=== PATIENT | male | born 1940 | race Caucasian/White ===

== ENCOUNTER 2023-08-27 18:18 | Emergency (ER) | payer OTHER, SELFPAY ==
[2023-08-27 18:23] VITALS: BP 127/69
[2023-08-27 18:31] VITALS: BMI 28.8
[2023-08-27 18:33] VITALS: BP 108/68
[2023-08-27 19:00] VITALS: BP 122/71
[2023-08-27 19:18] LABS: % Basophils 0.3 % (0-2); % Eosinophils 0.9 % (0-6); % Immature Granulocytes 0.7 % (0-0.5); % Lymphocytes 7.3 % (20.5-51.1); % Monocytes 6.3 % (1.7-9.3); % Neutrophils 84.5 % (42.2-75.2); Absolute Eosinophils 0.1 10^3/uL (0-0.7); Absolute Immature Granulocytes 0.1 10^3/uL (0-0.05); Absolute Lymphocytes 0.6 10^3/uL (1.2-3.4); Absolute Monocytes 0.5 10^3/uL (0.1-0.6); Absolute Neutrophils 6.4 10^3/uL (1.4-6.5); Hematocrit 39.1 % (39.0-52.0); Hemoglobin 13.9 g/dL (13.0-18.0); Mean Corp Hgb Conc. 35.5 g/dL (33.0-37.0); Mean Corpuscular Hgb 31.2 pg (27.0-31.0); Mean Corpuscular Volume 87.9 fL (80.0-94.0); Nucleated Red Blood Cells % 0 % (-); Platelet Count 113 10^3/uL (130-400); Red Blood Cell Count 4.45 10^6/uL (4.70-6.10); Red Cell Dist. Width 12.4 % (11.5-14.5); White Blood Cell Count 7.5 10^3/uL (4.8-10.8)
[2023-08-27 19:30] LABS: ALT (SGPT) 92 U/L (0-50); AST (SGOT) 123 U/L (17-59); Albumin 3.2 g/dl (3.5-5.0); Alkaline Phosphatase 82 U/L (38-126); Blood Urea Nitrogen 26 mg/dl (9-20); Calcium 9.5 mg/dl (8.4-10.2); Carbon Dioxide 27 mmol/L (22-30); Chloride 100 mmol/L (98-107); Estimated Creatinine Clearance 39 ml/min; Glucose 124 mg/dl (70-99); Magnesium 1.9 mg/dl (1.6-2.3); Potassium 3.1 mmol/L (3.5-5.1); Sodium 134 mmol/L (135-145); Total Bilirubin 2.2 mg/dl (0.2-1.3); Total Protein 5.4 g/dl (6.3-8.2); eGFR 54.51
[2023-08-27 19:33] LABS: COVID-19 Antigen Negative (Negative)
[2023-08-27 19:40] LABS: NT-proBNP 266 pg/ml; Troponin I 0.017 ng/ml
[2023-08-27 20:00] VITALS: BP 103/59
[2023-08-27] MEDS: NSS 500 IV (20:27)
[2023-08-27 21:00] VITALS: BP 113/77
[2023-08-27 22:20] LABS: Urine Albumin Trace (Neg - Trace); Urine Bilirubin Negative (Negative); Urine Character Clear (Clear); Urine Color Yellow; Urine Glucose Negative (Negative); Urine Ketone 2+ (Negative); Urine Leukocyte Negative (Negative); Urine Nitrite Negative (Negative); Urine Occult Blood Trace (Negative); Urine Specific Gravity 1.015 (<1.030); Urine Urobilinogen Negative (Neg - 1+)
[2023-08-27 22:38] LABS: Urine Bacteria Few (Negative); Urine Red Blood Cell 0-2 /HPF (0-2); Urine Squamous Cell 0-2 /LPF (Few); Urine White Cell 0-2 /HPF (0-5)
--- NOTE | 2023-08-27 23:10 | ED.GENMED ---
History of Present Illness
General
Chief Complaint: Weakness
Source: patient
Exam Limitations: none
Time Seen by Provider: 08/27/23 18:32
Nursing documentation reviewed up to this point in time: agreed with
Travel History
Have you had any contact with someone who has COVID-19?: No
Do you have any symptoms of coronavirus? Fever > 100 degrees, chills, cough, shortness of breath, sore throat, loss of taste or smell, muscle aches, or headache?: No
History of Present Illness
History of Present Illness:
83-year-old male presenting to the emergency department today with concerns of generalized weakness over the past few days. This was preceded by nausea vomiting diarrhea. That is since resolved. Claims that he is felt episodes where he felt like
he may need to fall did not have any significant trauma. Denies any head strike no headache no chest pain no shortness of breath.
Past History
Past History
ED Past Medical History: HTN, Hypercholesterolemia and Other (Cellulitis and severe infection in the past)
ED Past Surgical History: Orthopedic (Zac. Knee replacement) and Other (Prostate cancer with Prostatectomy)
Social History
Tobacco: Non-smoker
Alcohol: None
Personal: Other (Sig. other)
Living: with family
Review of Systems
Review of Systems
Allergies reviewed?: Yes
All Other Systems: ROS reviewed and negative except as documented in HPI and ROS
Phy Exam
Physical Exam
Physical Exam:
GENERAL: Alert , in no apparent distress
EYE: pupils equal and reactive
NECK: Supple, no significant adenopathy.
ENT: o/p clr, mmm.
CARDIAC: Regular rate and rhythm .
LUNGS: Clear breath sounds bilaterally, no acute respiratory distress, no wheezes/rales/rhonchi
ABDOMEN: Soft, without focal tenderness, no r/g, no cvat
NEUROLOGICAL: Alert and oriented, no focal neuro deficits
SKIN: Warm and dry, skin intact.
MUSCULOSKELETAL: No edema, well perfused.
PSYCH: Normal and appropriate interaction.
Course
Orders/Labs/Results
Orders:
Orders
08/27/23 18:58
EKG [Electrocardiogram (*1)] Urgent
Reason for Study: Fatigue / Weakness
08/27/23 18:59
EKG- Treatment ONCE
08/27/23 19:10
BNP [NT-proBNP] Urgent
COVID-19 Antigen Urgent
Source: Nasal Swab
Complete Blood Count/With Diff Urgent
Comprehensive Metabolic Panel Urgent
Magnesium Urgent
Troponin I Urgent
Influenza A+B Rapid Molecular Urgent
CORNEL Source: Nasal Swab
Specimen Description:
08/27/23 20:24
0.9% Sodium Chloride 500 ml [Nss] 500 ml IV BOLUS
08/27/23 22:13
Urinalysis Reflex To Culture Urgent
Date Specimen was Collected: 08/27/23
Time Specimen was Collected: 21:53
Urine Microscopic Reflex Cult Urgent
Abnormal Lab Results
08/27/23 08/27/23
19:10 22:13
RBC 4.45 L 10^6/uL
(4.70-6.10)
MCH 31.2 H pg
(27.0-31.0)
Plt Count 113 L 10^3/uL
(130-400)
Abs Immat Gran (auto) 0.1 H 10^3/uL
(0-0.05)
Absolute Lymphs (auto) 0.6 L 10^3/uL
(1.2-3.4)
Immature Gran % 0.7 H %
(0-0.5)
Neutrophils % 84.5 H %
(42.2-75.2)
Lymphocytes % 7.3 L %
(20.5-51.1)
Sodium 134 L mmol/L
(135-145)
Potassium 3.1 L mmol/L
(3.5-5.1)
BUN 26 H mg/dl
(9-20)
Glucose 124 H mg/dl
(70-99)
Total Bilirubin 2.2 H mg/dl
(0.2-1.3)
AST 123 H U/L
(17-59)
ALT 92 H U/L
(0-50)
Total Protein 5.4 L g/dl
(6.3-8.2)
Albumin 3.2 L g/dl
(3.5-5.0)
Urine Ketones 2+ A
(Negative)
Ur Occult Blood Reflex Trace A
(Negative)
Urine Bacteria (Reflex) Few A
(Negative)
08/27/23 19:10
08/27/23 19:10
Vital Signs
Initial and Last Documented VS:
Initial Vital Signs
Temp Pulse Resp BP Pulse Ox
99.8 F 86 18 127/69 96
08/27/23 18:23 08/27/23 18:23 08/27/23 18:23 08/27/23 18:23 08/27/23 18:23
Last Documented Vital Signs
Temp Pulse Resp BP Pulse Ox
99.8 F 109 32 140/72 88
08/27/23 18:23 08/28/23 01:30 08/28/23 01:30 08/28/23 01:00 08/28/23 00:38
MDM/Problems Addressed
MDM/Problems Addressed:
83-year-old male presenting to the emergency department with concerns of generalized weakness fatigue. He had vomiting diarrhea preceding this but though symptoms have resolved. Concern for potential dehydration was given fluid with significant
improvement of symptoms. On arrival here vital signs are normal. Patient no obvious distress normal heart lung examination. Potassium slightly low he was notified and advised for close outpatient follow-up. Return precautions given.
*Critical Care Note
Total Time (30-74mins, 75-104mins- exclusive of procedures): Not Applicable
ED Attending Note
-
Portions of this chart may have been created with voice recognition software.� Occasional wrong word or��sound alike� substitutions may have occurred due to the inherent limitations of voice recognition software.
Discharge Plan
Departure
Patient Disposition: Home (Routine Discharge)
Date of Disposition: 08/27/23
Time of Disposition: 23:10
Patient with high blood pressure during this ER visit?: No
Condition: Good
Covid-19: Not Applicable
Discharge Problem:
Generalized weakness
Instructions: Generalized Weakness (DC)
Prescriptions:
No Action
lovastatin 40 MG tablet
40 mg PO DAILY
amlodipine 5 MG tablet
10 mg PO DAILY
quinapril [Accupril] 40 MG tablet
40 mg PO DAILY
hydrochlorothiazide 25 MG tablet
25 mg PO DAILY
aspirin 325 MG tablet
325 mg PO DAILY
Referrals:
Arturo Boucher MD [Family Provider] -
Activity Restrictions/Additional Instructions:
You came to the emergency department today with concerns of generalized weakness and fatigue. Here you had a reassuring evaluation with no evidence of emergent pathology. Your potassium was slightly low. Please try to increase this in your diet.
Otherwise you had some slight elevation of your liver function test but this has been chronic. Please follow close with your primary care doctor for reassessment. Return to the emergency department any worsening, new or concerning symptoms.
Interventions
Interventions:
*Risk Screen - Suicide Last Done: 08/27/23 18:23
*General Assessment Last Done: 08/27/23 18:23
*Neglect/Abuse Screening Last Done: 08/27/23 18:23
*Nursing Disposition Last Done: 08/28/23 01:16
ED- Cardiac Assessment Last Done: 08/27/23 20:25
ED- Neurological Assessment Last Done: 08/27/23 20:25
ED- Pulmonary Assessment Last Done: 08/27/23 20:25
Discharge Date and Time
Discharge Date/Time: 08/28/23 02:02
[2023-08-28 00:38] VITALS: BP 150/97
[2023-08-28 01:00] VITALS: BP 140/72
== END 2023-08-28 02:02 | disposition home or self-care (01) ==
LOC: EMR 18:18
PROVIDERS: Physician Assistant; EMERGENCY PHYSICIAN Emergency Medicine; FAMILY PHYSICIAN Family Medicine
DX: R53.1 Weakness (principal); R11.2 Nausea with vomiting, unspecified; R19.7 Diarrhea, unspecified; I10 Essential (primary) hypertension; E78.00 Pure hypercholesterolemia, unspecified; Z85.46 Personal history of malignant neoplasm of prostate; Z90.79 Acquired absence of other genital organ(s); Z96.659 Presence of unspecified artificial knee joint
CPT/HCPCS: 99283; 96361; 80053; 81003; 81015; 83735; 83880; 84484; 85025; 87502; 87811; 93005

== ENCOUNTER 2023-08-30 17:22 | Inpatient (IN) | payer OTHER, SELFPAY ==
[2023-08-30] VITALS (9 sets, daily range): BP systolic 89–153; BP diastolic 61–79; BMI 27.4; BMI 29.0
[2023-08-30 11:41] LABS: % Basophils 0.2 % (0-2); % Eosinophils 0.4 % (0-6); % Immature Granulocytes 0.6 % (0-0.5); % Lymphocytes 9.7 % (20.5-51.1); % Monocytes 3.2 % (1.7-9.3); % Neutrophils 85.9 % (42.2-75.2); Absolute Immature Granulocytes 0.1 10^3/uL (0-0.05); Absolute Lymphocytes 0.9 10^3/uL (1.2-3.4); Absolute Monocytes 0.3 10^3/uL (0.1-0.6); Absolute Neutrophils 8.3 10^3/uL (1.4-6.5); Hematocrit 45.2 % (39.0-52.0); Hemoglobin 15.8 g/dL (13.0-18.0); Mean Corpuscular Hgb 31.5 pg (27.0-31.0); Mean Corpuscular Volume 90.2 fL (80.0-94.0); Nucleated Red Blood Cells % 0 % (-); Platelet Count 106 10^3/uL (130-400); Red Blood Cell Count 5.01 10^6/uL (4.70-6.10); Red Cell Dist. Width 12.6 % (11.5-14.5); White Blood Cell Count 9.7 10^3/uL (4.8-10.8)
[2023-08-30 11:51] LABS: COVID-19 Antigen Negative (Negative)
[2023-08-30 12:15] LABS: ALT (SGPT) 518 U/L (0-50); AST (SGOT) 477 U/L (17-59); Albumin 3.2 g/dl (3.5-5.0); Alkaline Phosphatase 109 U/L (38-126); Blood Urea Nitrogen 42 mg/dl (9-20); Calcium 10.1 mg/dl (8.4-10.2); Carbon Dioxide 27 mmol/L (22-30); Chloride 94 mmol/L (98-107); Glucose 150 mg/dl (70-99); Potassium 3.2 mmol/L (3.5-5.1); Sodium 132 mmol/L (135-145); Total Bilirubin 2.3 mg/dl (0.2-1.3); Total Protein 5.6 g/dl (6.3-8.2); eGFR 32.51
[2023-08-30 13:16] LABS: Urine Albumin 1+ (Neg - Trace); Urine Bilirubin 1+ (Negative); Urine Character Slightly Cloudy (Clear); Urine Color Amber; Urine Glucose Negative (Negative); Urine Ketone Trace (Negative); Urine Leukocyte Trace (Negative); Urine Nitrite Positive (Negative); Urine Occult Blood Negative (Negative); Urine Specific Gravity 1.025 (<1.030); Urine Urobilinogen 2+ (Neg - 1+)
--- NOTE | 2023-08-30 13:19 | ED.GENMED ---
History of Present Illness
General
Chief Complaint: Weakness
Time Seen by Provider: 08/30/23 13:04
Travel History
Have you had any contact with someone who has COVID-19?: No
Do you have any symptoms of coronavirus? Fever > 100 degrees, chills, cough, shortness of breath, sore throat, loss of taste or smell, muscle aches, or headache?: No
History of Present Illness
History of Present Illness:
83-year-old male with history of hypertension and hyperlipidemia presents to the emergency department for ration of gradually worsening weakness over the past several days. Patient was seen 4 days ago in this emergency department at which time labs
were unremarkable and he was discharged home. He has had several falls due to weakness since that time. Saw his primary care physician today at which time he was noted to be febrile and mildly hypotensive. He is coughing occasionally but denies
any significant coughing, wheezing or SOB. No chest pain. Did take his antihypertensives this year. Has taken intermittent but infrequent acetaminophen for symptoms this week. No ill contacts at home. Did have diarrhea this weekend.
Past History
Past History
ED Past Medical History: HTN, Hypercholesterolemia and Other (Cellulitis and severe infection in the past)
ED Past Surgical History: Orthopedic (Zac. Knee replacement) and Other (Prostate cancer with Prostatectomy)
Social History
Tobacco: Non-smoker
Alcohol: None
Personal: Other (Sig. other)
Living: with family
Review of Systems
Review of Systems
Allergies reviewed?: Yes
All Other Systems: ROS reviewed and negative except as documented in HPI and ROS
Phy Exam
Physical Exam
Physical Exam:
GEN: Well appearing, NAD, WDWN
Eyes: PERRLA, EOMs intact, no scleral icterus
HENT: NCAT, oral mucosa dry
Lungs: CTAB, no wheezes, rales, rhonchi, normal chest wall excursion
Cardiac: RRR, no M/R/G, no peripheral edema. Radial pulses 2+ bilat
Abdomen: S, NT, ND, NABS, no masses or hepatosplenomegaly
Neuro: AO x 3, no focal deficits to BUE/BLE, normal sensation throughout
MSK: No gross deformity or ecchymosis. No edema. No digital clubbing
Skin: No rashes, petechiae. Normal color, no pallor or jaundice.
Psych: Calm, cooperative, proper hygiene
Course
Orders/Labs/Results
Orders:
Orders
08/30/23 11:11
Electrocardiogram (*1) Urgent
Reason for Study: Other
Other Reason for Exam: Possible Sepsis
08/30/23 11:12
EKG- Treatment ONCE
08/30/23 11:23
Acetaminophen Urgent
Comment: ADD
COVID-19 Antigen Urgent
Source: Nasal Swab
Complete Blood Count/With Diff Urgent
Comprehensive Metabolic Panel Urgent
Creatine Phosphokinase Urgent
Comment: ADD ON
GGTP Urgent
Comment: ADD ON
Hepatitis A Antibody, Total Urgent
Comment: ADDD
Hepatitis B Surface Antibody Urgent
Comment: ADD
Hepatitis C Antibody Urgent
Comment: ADD
Lactic Acid Q4H
Comment: ON ICE, CANCEL 2ND ORDER IF FIRST LACTIC ACID LEVEL <2
Monotest Urgent
Comment: ADD
Blood Culture Urgent
CORNEL Source: Blood/Venous
Specimen Description:
Influenza A+B Rapid Molecular Urgent
CORNEL Source: Nasal Swab
Specimen Description:
08/30/23 13:03
Urinalysis Reflex To Culture Urgent
Date Specimen was Collected: 08/30/23
Time Specimen was Collected: 12:52
Urine Microscopic Reflex Cult Urgent
Urine Culture Urgent
CORNEL Source: U
Specimen Description:
Date Specimen was Collected: 08/30/23
Time Specimen was Collected: 12:52
08/30/23 13:17
Add On- LAB Urgent
Tests Added?: acetaminophen level; hepatitis panel; mono test
US Abdomen Complete/Upper Urgent
Comment:
Reason For Exam: transaminitis
08/30/23 13:18
CR Chest - 2 Views Urgent
Comment:
Reason For Exam: cough, fever
08/30/23 13:26
Potassium Chloride [KCl] 40 meq PO NOW STA
08/30/23 13:29
Blood Culture Routine
CORNEL Source: Blood/Venous
Specimen Description:
08/30/23 14:00
KCl 20 Meq/0.9%Sodchl 1000 ml [NSS with KCL 20 MEQ] 20 meq in 1,000 ml IV 500 mls/hr
08/30/23 Dinner
NPO
Allow oral meds: Yes
Allow clear liquids: Sips of Clears
08/30/23 15:46
Lactic Acid Q4H
Comment: ON ICE, CANCEL 2ND ORDER IF FIRST LACTIC ACID LEVEL <2
08/30/23 16:25
CefTRIAXone [Rocephin] 1,000 mg IV NOW STA
08/30/23 17:12
Admit/Transfer Patient As Directed
Co-Sign Provider:
Level of Care: Inpatient admission
Assign to:: Medical/Surgical
Physician / Group: huan
Diagnosis: fever/transamintiis
Reason for Hospitalization: fever/transamintiis
Expected length of stay greater than two midnights?: Yes
ELOS- Estimated Length of Stay in days: 2
I certify the patient meets the requirements for IP care: Yes
Code Status As Directed
Resuscitation Status: Do not resuscitate
Reached after discussion with pt or family/Healthcare POA: Yes
DNR Bracelet Application ONCE
08/30/23 17:15
Abdomen/Pelvis wo Contrast CT [CT Abd/pelvis Wo Iv Cont] Urgent
Comment: with oral only
Reason For Exam: abdominal pain
08/30/23 17:16
Potassium Chloride [KCl] 20 meq 0.9% Sodium Chloride 250 ml [Nss] 250 ml IV NOW
08/30/23 19:20
0.9% Sodium Chloride 1000 ml [Nss] 1,000 ml IV 100 mls/hr
Acetaminophen [Tylenol] 650 mg PO Q4HPRN PRN
netarsudil [Rhopressa] 1 drop BOTH EYES QPM
08/30/23 19:20
Activity As Directed
Activity Level: As Tolerated
Vital Signs As Directed
Frequency: Per unit guidelines
DX Deep Vein Thrombosis Video Routine
08/30/23 20:00
Heparin 5,000 units SC Q12
Piperacillin/Tazo 2.25 Gram [Zosyn] 2.25 grams in 50 ml IV Q6H
08/30/23 22:00
Bimatoprost [Lumigan 0.01%] 1 drop BOTH EYES HS
08/31/23 06:00
Complete Blood Count/With Diff IN AM
Comprehensive Metabolic Panel IN AM
08/31/23 08:00
Brimonidine Tartrate/Timolol [Combigan Eye Drops] 1 drop BOTH EYES DAILY
Multivitamin [Theragran] 1 tablet PO DAILY
Abnormal Lab Results
08/30/23 08/30/23
11:23 13:03
MCH 31.5 H pg
(27.0-31.0)
Plt Count 106 L 10^3/uL
(130-400)
MPV 12.0 H fL
(7.4-10.4)
Abs Immat Gran (auto) 0.1 H 10^3/uL
(0-0.05)
Absolute Neuts (auto) 8.3 H 10^3/uL
(1.4-6.5)
Absolute Lymphs (auto) 0.9 L 10^3/uL
(1.2-3.4)
Immature Gran % 0.6 H %
(0-0.5)
Neutrophils % 85.9 H %
(42.2-75.2)
Lymphocytes % 9.7 L %
(20.5-51.1)
Sodium 132 L mmol/L
(135-145)
Potassium 3.2 L mmol/L
(3.5-5.1)
Chloride 94 L mmol/L
(98-107)
BUN 42 H mg/dl
(9-20)
Creatinine 2.0 H mg/dL
(0.7-1.3)
Glucose 150 H mg/dl
(70-99)
Total Bilirubin 2.3 H mg/dl
(0.2-1.3)
AST 477 H U/L
(17-59)
ALT 518 H* U/L
(0-50)
Total Protein 5.6 L g/dl
(6.3-8.2)
Albumin 3.2 L g/dl
(3.5-5.0)
Urine Ketones Trace A
(Negative)
Urine Nitrite (Reflex) Positive A
(Negative)
Urine Bilirubin 1+ A
(Negative)
Urine Urobilinogen 2+ A
(Neg - 1+)
Leukocyte Esterase Rfl Trace A
(Negative)
Urine RBC 3-6 A /HPF
(0-2)
Urine Bacteria (Reflex) Many A
(Negative)
Urine Albumin (Reflex) 1+ A
(Neg - Trace)
Acetaminophen < 10 L ug/ml
(10-30)
08/30/23 11:23
08/30/23 11:23
Vital Signs
Initial and Last Documented VS:
Initial Vital Signs
Temp Pulse Resp BP Pulse Ox
98.4 F 92 16 153/74 92
08/30/23 11:08 08/30/23 11:08 08/30/23 11:08 08/30/23 11:08 08/30/23 11:08
Last Documented Vital Signs
Temp Pulse Resp BP Pulse Ox
98.4 F 78 22 128/72 99
08/30/23 11:08 08/30/23 18:00 08/30/23 18:00 08/30/23 18:00 08/30/23 17:30
MDM/Problems Addressed
MDM/Problems Addressed:
83-year-old male presents with weakness, intermittent fevers, and fatigue. He was coughing to some degree and there is a suggestion of a retrocardiac density by my interpretation on chest x-ray. His urinalysis also has large amount of bacteria but
is not strongly suggestive of UTI. He has no leukocytosis or fever in the ER. Also unclear etiology to the patient's transaminitis as his upper abdominal ultrasound is unremarkable. Will admit the patient on empiric antibiotics for further
trending of transaminases and IV fluid resuscitation
*Critical Care Note
Total Time (30-74mins, 75-104mins- exclusive of procedures): Not Applicable
ED Attending Note
-
Portions of this chart may have been created with voice recognition software.� Occasional wrong word or��sound alike� substitutions may have occurred due to the inherent limitations of voice recognition software.
Discharge Plan
Departure
Patient Disposition: Admit
Date of Disposition: 08/30/23
Time of Disposition: 16:26
Presentation/result/management discussed w/ accepting MD/DO: Hospitalist
Discharge Problem:
Acute kidney injury, Community acquired pneumonia, Acute dehydration, Frequent falls
Interventions
Interventions:
*Risk Screen - Suicide Last Done: 08/30/23 13:15
*General Assessment Last Done: 08/30/23 13:11
*Neglect/Abuse Screening Last Done: 08/30/23 13:15
ED- Fall Risk Assessment Last Done: 08/30/23 13:11
*ED COVID-19 Vaccine History Last Done: 08/30/23 13:11
*Nursing Disposition Last Done: 08/30/23 19:27
ED- Cardiac Assessment Last Done: 08/30/23 13:11
ED- Neurological Assessment Last Done: 08/30/23 13:11
ED- Pulmonary Assessment Last Done: 08/30/23 13:11
[2023-08-30] MEDS: KCL 40 MEQ PO (13:33)
[2023-08-30 14:00] LABS: Acetaminophen < 10 ug/ml (10-30)
[2023-08-30 14:09] LABS: Urine Bacteria Many (Negative)
[2023-08-30] MEDS: NSS with KCL 20 MEQ 1000 IV (14:26)
[2023-08-30 14:55] LABS: Monotest Negative (Negative)
[2023-08-30 16:08] LABS: Lactic Acid 1.1 mmol/L (0.7-2.0)
[2023-08-30] MEDS: ROCEPHIN 1000 MG IV (16:34)
[2023-08-30 17:04] LABS: Hepatitis B Surface Antibody Negative; Hepatitis C Antibody Negative (Negative)
[2023-08-30 17:10] LABS: Hepatitis A Antibody, Total Negative (Negative)
--- NOTE | 2023-08-30 17:19 | HPS.HSE ---
Family Physician
-
Family Physician: Arturo Boucher
Chief Complaint
-
weakness
History of Present Illness
83 year old male past medical history of prostate cancer status post prostatectomy, hypertension, hyperlipidemia presenting with gradually worsening weakness over the past several days. Patient was seen 4 days ago in the emergency room at which
time labs were unremarkable and he was discharged home. Since that time he had several falls due to weakness secondary to dizziness and gait instability. First time after falling he was unable to get up and was on the ground for 8 hours until
roommate helped him up.
He saw primary care physician today at which time he was noted to be febrile and mildly hypotensive. He is coughing occasionally as per ER but denies significant cough, wheezing or shortness of breath. No chest pain. No sick contacts. He did
have diarrhea 4 days ago but this had resolved. He denies any muscle pain or body pains. He denies any urinary symptoms. He did have some nausea and dry heaving. He denies eating any recent outside food or any travel history.
Medical History
Past Medical History
Past Medical History: Reports Other (prostate cancer status post prostatectomy, hypertension, hyperlipidemia)
Past Surgical History: Reports Other (Orthopedic (Zac. Knee replacement) and Other (Prostate cancer with Prostatectomy))
Social History
Tobacco: Non-smoker
Alcohol: None
Drug: None
Family History
Family History: Not pertinent
Allergies / Home Medications
Allergies reflects when Allergies were last updated in [facility].
Home Medications with original date entered in [facility]
Allergy/Medication List:
Allergies
Allergy/AdvReac Type Severity Reaction Status Date / Time
No Known Allergies Allergy Verified 08/30/23 11:08
Home Medications
hydrochlorothiazide 25 mg tablet 12.5 mg PO DAILY 06/14/12
lovastatin 40 mg tablet 40 mg PO DAILY 06/14/12
bimatoprost 0.01 % eye drops (Lumigan) 1 drp BOTH EYES HS 08/30/23
brimonidine 0.2 %-timolol 0.5 % eye drops (Combigan) 1 drp BOTH EYES DAILY 08/30/23
lisinopril 20 mg tablet 20 mg PO DAILY 08/30/23
bjwvniut-kzypvbln-opzk 8 mg-folic ac 400 mcg-vit K 10 mcg chew tablet (Centrum Chewables) 1 tab PO DAILY 08/30/23
netarsudil 0.02 % eye drops (Rhopressa) 1 drp BOTH EYES QPM 08/30/23
Review of Systems
-
History Source: Patient
A 12 point ROS was completed and negative except as noted: Yes
Constitutional: Reports No Symptoms
EENT: Reports No Symptoms
Respiratory: Reports No Symptoms
Cardiac: Reports No Symptoms
Abdomen/GI: Reports No Symptoms
: Reports No Symptoms
Musculoskeletal: Reports No Symptoms
Skin: Reports No Symptoms
Neurological: Reports No Symptoms
Endocrine: Reports No Symptoms
Hematologic/Lymphatic: Reports No Symptoms
Psych: Reports No Symptoms
Physical Exam
Vital Signs
Vital Signs
Temp Pulse Resp BP Pulse Ox
98.4 F 76 17 101/63 95
08/30/23 11:08 08/30/23 17:00 08/30/23 17:00 08/30/23 17:00 08/30/23 17:00
Physical Exam
General: Well Developed, Well Nourished and No Apparent Distress
HEENT: NormoCephalic, Moist mucous membranes and Atraumatic
Respiratory: Clear
Cardiac: S1/S2 and Regular Rhythm; No Murmur or Rub
GI: Soft, Non Distended, Normal Bowel Sounds and Tender (LLQ ); No Organomegaly
Rectal: Deferred by Provider
Musculoskeletal: No Clubbing, No Cyanosis and No Edema
Skin: No Rash
Neuro: Nonfocal/grossly intact
Laboratory Results
-
08/30/23 11:23
08/30/23 11:23
Laboratory Results
Lactic Acid 1.1 mmol/L (0.7-2.0) 08/30/23 15:46
Total Bilirubin 2.3 mg/dl (0.2-1.3) H 08/30/23 11:23
AST 477 U/L (17-59) H 08/30/23 11:23
ALT 518 U/L (0-50) H* 08/30/23 11:23
Alkaline Phosphatase 109 U/L (38-126) 08/30/23 11:23
Data Reviewed
-
Lab Data: Labs Reviewed by me
Old Records: Reviewed
Impression/Plan
-
IMPRESSION:
PLAN:
# Fever at primary care office/hypotension unclear etiology possibly UTI although asymptomatic
-Chest x-ray negative
-COVID and influenza negative
-Urinalysis shows 3-5 WBC, positive nitrates, trace leukocyte esterase
-Check urine culture, blood cultures
-Check procalcitonin
-Zosyn
# Transaminitis possibly rhabdomyolysis/intra-abdominal pathology versus viral infection
-Some tenderness in left lower quadrant
-Ultrasound liver consistent with hepatic steatosis
-Check CT abdomen pelvis with p.o. contrast
-Check CPK
-Check hepatitis serologies, GGT
-Hold statin
# Acute kidney injury on CKD
-Creatinine of 2 from 1.3
-IV fluids
-Hold hydrochlorothiazide, lisinopril
# Hypokalemia secondary to recent diarrhea
-Replete potassium
-check magnesium
Prostate cancer status post prostatectomy
Essential hypertension
-Hold hydrochlorothiazide, lisinopril
Hyperlipidemia
-Hold statin
DNR/DNI
DVT prophylaxis�heparin
N.p.o.
[2023-08-30] MEDS: KCL 260 MEQ IV (17:49)
[2023-08-30] MEDS: OMNIPAQUE 50 ML PO (17:51)
[2023-08-30] MEDS: ZOSYN 50 IV (21:17)
[2023-08-30] MEDS: NSS 1000 IV (21:17)
[2023-08-30] MEDS: HEPARIN 5000 UNITS SC (21:17)
[2023-08-30] MEDS: LUMIGAN 0.01% 1 DROP BOTH EYES (21:18)
[2023-08-30 22:37] LABS: Creatine Phosphokinase 312 U/L (55-170); GGTP 27 U/L (15-73)
[2023-08-31] MEDS: ZOSYN 50 IV ×4 (01:20→19:43)
[2023-08-31 07:00] VITALS: BP 137/66
[2023-08-31 08:00] LABS: % Basophils 0.2 % (0-2); % Eosinophils 0.8 % (0-6); % Immature Granulocytes 0.8 % (0-0.5); % Lymphocytes 11.2 % (20.5-51.1); % Monocytes 4.1 % (1.7-9.3); % Neutrophils 82.9 % (42.2-75.2); Absolute Eosinophils 0.1 10^3/uL (0-0.7); Absolute Immature Granulocytes 0.1 10^3/uL (0-0.05); Absolute Monocytes 0.4 10^3/uL (0.1-0.6); Absolute Neutrophils 7.3 10^3/uL (1.4-6.5); Hematocrit 39.2 % (39.0-52.0); Hemoglobin 13.5 g/dL (13.0-18.0); Mean Corp Hgb Conc. 34.4 g/dL (33.0-37.0); Mean Corpuscular Hgb 30.9 pg (27.0-31.0); Mean Corpuscular Volume 89.7 fL (80.0-94.0); Mean Platelet Volume 12.1 fL (7.4-10.4); Nucleated Red Blood Cells % 0 % (-); Platelet Count 105 10^3/uL (130-400); Red Blood Cell Count 4.37 10^6/uL (4.70-6.10); Red Cell Dist. Width 12.9 % (11.5-14.5); White Blood Cell Count 8.8 10^3/uL (4.8-10.8)
[2023-08-31 08:55] LABS: ALT (SGPT) 307 U/L (0-50); AST (SGOT) 175 U/L (17-59); Albumin 2.6 g/dl (3.5-5.0); Alkaline Phosphatase 87 U/L (38-126); Blood Urea Nitrogen 40 mg/dl (9-20); Calcium 9.3 mg/dl (8.4-10.2); Carbon Dioxide 25 mmol/L (22-30); Chloride 100 mmol/L (98-107); Estimated Creatinine Clearance 30 ml/min; Glucose 87 mg/dl (70-99); Potassium 3.6 mmol/L (3.5-5.1); Sodium 134 mmol/L (135-145); Total Bilirubin 2.1 mg/dl (0.2-1.3); Total Protein 4.8 g/dl (6.3-8.2); eGFR 39.51
[2023-08-31] MEDS: NSS 1000 IV ×2 (09:33→20:50)
[2023-08-31] MEDS: THERAGRAN 1 TABLET PO (09:35)
[2023-08-31] MEDS: HEPARIN 5000 UNITS SC ×2 (09:35→19:44)
--- NOTE | 2023-08-31 12:07 | W.PN.HOSP.TC ---
Today's Communication/Plan
-
see A/P
Assessment / Plan
Assessment / Plan
HPI: 83 year old male past medical history of prostate cancer status post prostatectomy, hypertension, hyperlipidemia; presented with gradually worsening weakness over the past several days.� Patient was seen 4 days [employer] in the emergency room at
which time labs were unremarkable and he was discharged home.� Since that time he had several falls due to weakness secondary to dizziness and gait instability.� First time after falling he was unable to get up and was on the ground for 8 hours
until roommate helped him up.
He saw primary care physician on DOA at which time he was noted to be febrile and mildly hypotensive.� He is coughing occasionally as per ER but denies significant cough, wheezing or shortness of breath.� No chest pain.� No sick contacts.� He did
have diarrhea 4 days [employer] but this has resolved.� He denies any muscle pain or body pains.� He denies any urinary symptoms.� He did have some nausea and dry heaving.� He denies eating any recent outside food or any travel history.
A/P:
# Fever at primary care office/hypotension unclear etiology possibly UTI although asymptomatic
Chest x-ray negative, COVID and influenza negative
Urinalysis shows 3-5 WBC, positive nitrates, trace leukocyte esterase, follow urine culture, blood cultures
Procalcitonin not useful in this case with elevated SCr
Zosyn was started, cont
# Transaminitis possibly mild rhabdomyolysis versus reactive from infection, LFT improving
Ultrasound liver consistent with hepatic steatosis
CT AP unrevealing: Moderate fat-containing midline upper abdominal wall hernia with minor inflammation. Small fat-containing umbilical hernia. Cholelithiasis. Colonic diverticulosis.
CPK mildly elevated (would not account for elevated LFT)
Hepatitis panel negative
Hold statin
# Acute kidney injury on CKD stage 3
Creatinine 2.0 -> 1.7; from baseline 1.3
Cont IV fluids
Hold [employer] hydrochlorothiazide, lisinopril
# Hypokalemia secondary to recent diarrhea
Repleted
Follow magnesium level
monitor for further diarrhea
# weakness
PT OT eval
# Prostate cancer status post prostatectomy
# Essential hypertension
Hold hydrochlorothiazide, lisinopril
# Hyperlipidemia
Hold statin
DNR/DNI
DVT prophylaxis�heparin SQ
Anticipated Discharge: > 48 hours
Subjective/Interval History
-
Date of Service: August 31, 2023
Objective Data
-
Labs:
Laboratory Results
08/31/23
06:57
WBC 8.8
Hgb 13.5
Hct 39.2
Plt Count 105 L
Sodium 134 L
Potassium 3.6
Chloride 100
Carbon Dioxide 25
BUN 40 H
Creatinine 1.7 H
Glucose 87
Calcium 9.3
Total Bilirubin 2.1 H
AST 175 H
ALT 307 H
Alkaline Phosphatase 87
Vital Signs:
Vital Signs
Temp Pulse Resp BP Pulse Ox
36.8 C 92 20 137/66 95
08/31/23 07:00 08/31/23 07:00 08/31/23 07:00 08/31/23 07:00 08/31/23 07:00
I&O
08/30/23 08/31/23 09/01/23
06:59 06:59 06:59
Intake Total 1520 / 1520
Output Total 300 / 300
Balance 1220 / 1220
Review of Systems
-
Constitutional: Reports Weakness
Physical Exam
-
General: Well Developed, Well Nourished, No Apparent Distress, Comfortable and Conversant; Negative Respiratory Distress
HEENT: Normocephalic, Atraumatic, Nose Appears Normal and Ears Appear Normal; Negative Oxygen
Respiratory: Clear to Auscultation and Non Labored Respirations; Negative Accessory Resp Muscle Use
Cardiac: Regular Rhythm and S1/S2
GI: Soft, Nontender, Nondistended, Normal Bowel Sounds and Other (abd wall hernia )
Skin: Warm and Dry
Neuro: Awake and Alert
Psych: Calm and Intact Judgement/Insight
Data Reviewed
-
CT Scan: Report Reviewed by me
Ultrasound: Report Reviewed by me
Labs: Labs Reviewed by me
[2023-08-31] MEDS: KCL 20 MEQ PO (12:46)
[2023-08-31] MEDS: COMBIGAN EYE DROPS BOTH EYES (12:46)
[2023-08-31 15:00] VITALS: BP 114/65
[2023-08-31 16:05] VITALS: BP 117/62; BP 87/54; PULSE 90; PULSE 96
[2023-08-31] MEDS: LUMIGAN 0.01% 1 DROP BOTH EYES (19:44)
[2023-08-31 23:12] VITALS: BP 97/42
[2023-09-01] MEDS: ZOSYN 50 IV ×4 (01:39→19:23)
[2023-09-01 07:00] VITALS: BP 130/69
[2023-09-01 08:03] LABS: Hematocrit 35.1 % (39.0-52.0); Hemoglobin 12.2 g/dL (13.0-18.0); Mean Corp Hgb Conc. 34.8 g/dL (33.0-37.0); Mean Corpuscular Hgb 31.7 pg (27.0-31.0); Mean Corpuscular Volume 91.2 fL (80.0-94.0); Mean Platelet Volume 11.7 fL (7.4-10.4); Platelet Count 112 10^3/uL (130-400); Red Blood Cell Count 3.85 10^6/uL (4.70-6.10); Red Cell Dist. Width 13.1 % (11.5-14.5); White Blood Cell Count 8.7 10^3/uL (4.8-10.8)
[2023-09-01 08:47] LABS: ALT (SGPT) 199 U/L (0-50); AST (SGOT) 86 U/L (17-59); Albumin 2.4 g/dl (3.5-5.0); Alkaline Phosphatase 84 U/L (38-126); Blood Urea Nitrogen 29 mg/dl (9-20); Calcium 9.1 mg/dl (8.4-10.2); Carbon Dioxide 27 mmol/L (22-30); Chloride 107 mmol/L (98-107); Direct Bilirubin 0.5 mg/dl (0.0-0.4); Estimated Creatinine Clearance 34 ml/min; Glucose 105 mg/dl (70-99); Magnesium 2.1 mg/dl (1.6-2.3); Potassium 3.6 mmol/L (3.5-5.1); Sodium 133 mmol/L (135-145); Total Bilirubin 1.8 mg/dl (0.2-1.3); Total Protein 4.5 g/dl (6.3-8.2); eGFR 45.91
[2023-09-01] MEDS: NSS 1000 IV (09:15)
[2023-09-01] MEDS: HEPARIN 5000 UNITS SC ×2 (09:16→19:23)
[2023-09-01] MEDS: THERAGRAN 1 TABLET PO (09:16)
[2023-09-01] MEDS: COMBIGAN EYE DROPS BOTH EYES (09:17)
--- NOTE | 2023-09-01 10:04 | W.PN.HOSP.TC ---
Today's Communication/Plan
-
see AP
Assessment / Plan
Assessment / Plan
HPI: 83 year old male past medical history of prostate cancer status post prostatectomy, hypertension, hyperlipidemia; presented with gradually worsening weakness over the past several days.� Patient was seen 4 days MEMBERSHIP SALES REPRESENTATIVE in the emergency room at
which time labs were unremarkable and he was discharged home.� Since that time he had several falls due to weakness secondary to dizziness and gait instability.� First time after falling he was unable to get up and was on the ground for 8 hours
until roommate helped him up.
He saw primary care physician on DOA at which time he was noted to be febrile and mildly hypotensive.� He is coughing occasionally as per ER but denies significant cough, wheezing or shortness of breath.� No chest pain.� No sick contacts.� He did
have diarrhea 4 days MEMBERSHIP SALES REPRESENTATIVE but this has resolved.� He denies any muscle pain or body pains.� He denies any urinary symptoms.� He did have some nausea and dry heaving.� He denies eating any recent outside food or any travel history.
A/P:
# Fever at primary care office/hypotension unclear etiology, possibly UTI although asymptomatic
Chest x-ray negative, COVID and influenza negative
Procalcitonin not useful with elevated SCr
Urinalysis shows 3-5 WBC, positive nitrates, trace leukocyte esterase, follow urine culture
blood cultures negative
Zosyn was started, cont
# Transaminitis possibly mild rhabdomyolysis versus reactive from infection, LFT improving
Ultrasound liver consistent with hepatic steatosis
CT AP unrevealing: Moderate fat-containing midline upper abdominal wall hernia with minor inflammation. Small fat-containing umbilical hernia. Cholelithiasis. Colonic diverticulosis.
CPK mildly elevated (would not account for elevated LFT)
Hepatitis panel negative
Hold statin for now
# Acute kidney injury on CKD stage 3
Creatinine 2.0 -> 1.5; from baseline 1.3
Cont IV fluids
Hold MEMBERSHIP SALES REPRESENTATIVE hydrochlorothiazide, lisinopril
# Hypokalemia secondary to recent diarrhea
Repleted K
Mag WNL
No further diarrhea
# weakness
PT OT recc SNF
# Prostate cancer status post prostatectomy
# Essential hypertension
Hold hydrochlorothiazide, lisinopril
BP stable
# Hyperlipidemia
Hold statin
DNR/DNI
DVT prophylaxis�heparin SQ
Dispo: SNF
Anticipated Discharge: 24 - 48 hours
Subjective/Interval History
-
Date of Service: September 01, 2023
Objective Data
-
Labs:
Laboratory Results
09/01/23
07:38
WBC 8.7
Hgb 12.2 L
Hct 35.1 L
Plt Count 112 L
Sodium 133 L
Potassium 3.6
Chloride 107
Carbon Dioxide 27
BUN 29 H
Creatinine 1.5 H
Glucose 105 H
Calcium 9.1
Total Bilirubin 1.8 H
AST 86 H
ALT 199 H
Alkaline Phosphatase 84
Vital Signs:
Vital Signs
Temp Pulse Resp BP Pulse Ox
36.5 C 77 18 130/69 94
09/01/23 07:00 09/01/23 07:00 09/01/23 07:00 09/01/23 07:00 09/01/23 07:00
I&O
08/31/23 09/01/23 09/02/23
06:59 06:59 06:59
Intake Total 1520 / 1520 2500 / 2500
Output Total 300 / 300 875 / 875
Balance 1220 / 1220 1625 / 1625
Review of Systems
-
Constitutional: Reports Weakness
Physical Exam
-
General: Well Developed, Well Nourished, No Apparent Distress, Comfortable and Conversant; Negative Respiratory Distress
HEENT: Normocephalic, Atraumatic, Nose Appears Normal and Ears Appear Normal; Negative Oxygen
Respiratory: Clear to Auscultation and Non Labored Respirations; Negative Accessory Resp Muscle Use
Cardiac: Regular Rhythm and S1/S2
GI: Soft, Nontender, Nondistended, Normal Bowel Sounds and Other (abd wall hernia )
Skin: Warm and Dry
Neuro: Awake and Alert
Psych: Calm and Intact Judgement/Insight
Data Reviewed
-
CT Scan: Report Reviewed by me
Ultrasound: Report Reviewed by me
Labs: Labs Reviewed by me
[2023-09-01 13:53] VITALS: BP 100/57; PULSE 69
--- NOTE | 2023-09-01 15:04 | CM ---
CM following re: d/c planning
Chart reviewed
CM met with the patient at bedside; IA completed
Pt reports he and his S.O. reside in a [address] [place] [id number] [facility]
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
Pt has prescription coverage and rx's are filled at [facility] on [facility] and for 90 day meds the patient states he uses [facility]
Pt PCP-Dr. Boucher
Per PT eval recommendation SNF is recommended
Pt has been to [facility] for rehab
CM will continue to monitor for d/c planning needs as indicated
PLAN; d/c to SNF when stable
[2023-09-01] MEDS: LUMIGAN 0.01% 1 DROP BOTH EYES (19:24)
[2023-09-01] MEDS: NON-FORMULARY ITEM 1 DROP BOTH EYES (21:21)
[2023-09-01 23:08] VITALS: BP 121/63
[2023-09-02] MEDS: ZOSYN 50 IV ×2 (02:58→07:44)
[2023-09-02 07:10] LABS: Hematocrit 35.7 % (39.0-52.0); Hemoglobin 12.2 g/dL (13.0-18.0); Mean Corp Hgb Conc. 34.2 g/dL (33.0-37.0); Mean Corpuscular Hgb 31.6 pg (27.0-31.0); Mean Corpuscular Volume 92.5 fL (80.0-94.0); Mean Platelet Volume 11.8 fL (7.4-10.4); Platelet Count 132 10^3/uL (130-400); Red Blood Cell Count 3.86 10^6/uL (4.70-6.10); Red Cell Dist. Width 13.1 % (11.5-14.5); White Blood Cell Count 7.9 10^3/uL (4.8-10.8)
[2023-09-02 07:32] LABS: ALT (SGPT) 169 U/L (0-50); AST (SGOT) 75 U/L (17-59); Albumin 2.5 g/dl (3.5-5.0); Alkaline Phosphatase 82 U/L (38-126); Blood Urea Nitrogen 22 mg/dl (9-20); Calcium 9.2 mg/dl (8.4-10.2); Carbon Dioxide 27 mmol/L (22-30); Chloride 107 mmol/L (98-107); Direct Bilirubin 0.5 mg/dl (0.0-0.4); Estimated Creatinine Clearance 39 ml/min; Glucose 98 mg/dl (70-99); Magnesium 2.2 mg/dl (1.6-2.3); Potassium 3.6 mmol/L (3.5-5.1); Sodium 135 mmol/L (135-145); Total Bilirubin 1.5 mg/dl (0.2-1.3); Total Protein 4.8 g/dl (6.3-8.2); eGFR 54.51
[2023-09-02 07:39] LABS: Glucose - Point of Care 96 mg/dl (70-99)
[2023-09-02 07:40] VITALS: BP 115/58
[2023-09-02] MEDS: HEPARIN 5000 UNITS SC (07:47)
[2023-09-02] MEDS: THERAGRAN 1 TABLET PO (07:47)
[2023-09-02] MEDS: COMBIGAN EYE DROPS 1 DROP BOTH EYES (07:48)
--- NOTE | 2023-09-02 10:26 | W.PN.HOSP.TC ---
Today's Communication/Plan
-
d/c
Assessment / Plan
Assessment / Plan
HPI: 83 year old male past medical history of prostate cancer status post prostatectomy, hypertension, hyperlipidemia; presented with gradually worsening weakness over the past several days.� Patient was seen 4 days SPEECH LANGUAGE THERAPIST in the emergency room at
which time labs were unremarkable and he was discharged home.� Since that time he had several falls due to weakness secondary to dizziness and gait instability.� First time after falling he was unable to get up and was on the ground for 8 hours
until roommate helped him up.
He saw primary care physician on DOA at which time he was noted to be febrile and mildly hypotensive.� He is coughing occasionally as per ER but denies significant cough, wheezing or shortness of breath.� No chest pain.� No sick contacts.� He did
have diarrhea 4 days SPEECH LANGUAGE THERAPIST but this has resolved.� He denies any muscle pain or body pains.� He denies any urinary symptoms.� He did have some nausea and dry heaving.� He denies eating any recent outside food or any travel history.
Gen: NAD, Awake and alert
Eyes: EOMI, PERRLA, no scleral icterus.
Neck: supple.
CV: RRR, +S1/S2, no m/r/g.
Resp: CTAB, no rales, wheezes, or rhonchi.
Abd: +BS, soft, NT, ND
Skin: No rashes.
Neuro: CN 2-12 intact, non-focal.
Psych: Normal mood and affect.
Fever at primary care office/hypotension unclear etiology, possibly UTI although asymptomatic:
-Chest x-ray negative, COVID/Flu NEG
-Procalcitonin not useful with elevated SCr
-UCx with strep
-BCx NGTD
-currently on Zosyn since 08/30/23PM, switch to Keflex to complete 7 days abx
-with weakness, PT/OT
Transaminitis/elevated LFTs:
-possibly reactive from infection, improving
-Abd U/S with hepatic steatosis
-CT AP unrevealing: Moderate fat-containing midline upper abdominal wall hernia with minor inflammation. Small fat-containing umbilical hernia. Cholelithiasis. Colonic diverticulosis.
-cont to hold statin
-acute viral Hepatitis panel negative
GRAHAM on CKD3:
-resolved s/p IVFs
-home HCTZ/ACEi on hold, no need to restart based on blood pressures while hospitalized
Other problems:
Hypokalemia secondary to recent diarrhea, resolved
Prostate cancer s/p prostatectomy
Essential hypertension: home HCTZ/ACEi on hold, no need to restart based on blood pressures while hospitalized
Hyperlipidemia: statin on hold
Hyponatremia, resolved
DNR/DNI
DVT prophylaxis�heparin SQ
Dispo: SNF
Medically cleared for discharge. Case management aware.
Total time spent on d/c = 31 min. This included today's physical exam, progress note, review of laboratory and diagnostic data, preparation of discharge documents and prescriptions, and discussions about the pt's hospital course and discharge plan
with the patient and other medical file clerk involved in the patient's care.
Anticipated Discharge: Today
Subjective/Interval History
-
Date of Service: September 02, 2023
No new complaints. Denies CP/SOB.
Objective Data
-
Labs:
Laboratory Results
09/02/23
06:49
WBC 7.9
Hgb 12.2 L
Hct 35.7 L
Plt Count 132
Sodium 135
Potassium 3.6
Chloride 107
Carbon Dioxide 27
BUN 22 H
Creatinine 1.3
Glucose 98
Calcium 9.2
Total Bilirubin 1.5 H
AST 75 H
ALT 169 H
Alkaline Phosphatase 82
Vital Signs:
Vital Signs
Temp Pulse Resp BP Pulse Ox
98.7 F 66 18 115/58 95
09/02/23 07:40 09/02/23 07:40 09/02/23 07:40 09/02/23 07:40 09/02/23 09:47
I&O
09/01/23 09/02/23 09/03/23
06:59 06:59 06:59
Intake Total 2500 / 2500 330 / 330
Output Total 875 / 875 500 / 500
Balance 1625 / 1625 -170 / -170
[2023-09-02 11:31] VITALS: BP 110/57
--- NOTE | 2023-09-02 11:57 | CM ---
CM following re: d/c planning
Chart reviewed
Pt stable for d/c
Per PT/OT evals post d/c recommendation is for SNF
CM spoke with the patient at bedside to discuss therapy's recommendation and informed of several referrals that had been placed as options in case there was no beds available
Pt informed this narrative writer that he did not feel inpatient rehab was necessary at this time however was amenable to home care
CM provided home care choices and [facility] was selected
IMM was reviewed and copy provided to the patient who additionally confirmed that his S.O. would transport him home at time of
d/c
No additional d/c needs to note
PLAN: d/c home with [facility]
Fax:
[2023-09-02] MEDS: KEFLEX 500 MG PO (12:00)
--- NOTE | 2023-09-02 16:22 | W.DCSUMMARY ---
Discharge Summary
Discharge Data
Date of Admission: 08/30/23
Date of Discharge: 09/02/23
-
Pending Results: No
Hospital Course
Primary diagnoses:
Urinary tract infection
Transaminitis/elevated liver function tests
Acute kidney injury on chronic disease stage III
Secondary diagnoses:
Hypokalemia secondary to recent diarrhea
Prostate cancer s/p prostatectomy
Essential hypertension
Hyperlipidemia
Hyponatremia
Consultants:
None
Imaging:
Abd U/S:
1. � Cholelithiasis. No findings highly suspicious for acute cholecystitis.
2. � Increased hepatic echogenicity most consistent with mild fatty infiltration.
3. � Resolution of previously seen splenomegaly.
CXR: No acute cardiopulmonary process.
CT A/P:
1. Moderate fat-containing midline upper abdominal wall hernia with minor inflammation. Small fat-containing umbilical hernia.
2. Cholelithiasis.
3. Colonic diverticulosis.
4. Additional chronic findings, as detailed above.
83-year-old male who presented with chief complaint of weakness as outlined in the H&P done on admission. Hospital course per problem list:
Urinary tract infection: The patient had a fever at his primary care physician's office. He was hypotensive and given IV fluids. COVID and flu testing were negative. Chest x-ray was negative. Procalcitonin was ordered but this is not useful in
patients with chronic kidney disease. Patient was on empiric Zosyn. Urine culture grew strep species and he was transitioned to Keflex to complete 7 days of antibiotic therapy. Blood cultures were no growth to date.
Transaminitis/elevated LFTs: This was possibly reactive from infection and improved. Abdominal ultrasound showed hepatic steatosis. CT scan of the abdomen pelvis was unrevealing as above. His statin was held. Acute viral hepatitis panel was
negative.
GRAHAM on CKD3: Patient's home hydrochlorothiazide and TAMMIE inhibitor were held and they did not need to be restarted based on blood pressures while hospitalized. His acute kidney injury resolved with IV fluids
Discharge Plan
-
Patient Disposition: Home with Home Care
Discharge Diagnosis/Procedures: Urinary tract infection, transaminitis/elevated liver function tests, acute kidney injury on chronic kidney disease stage III
Condition: Good
Diet: No restrictions
Activity: As tolerated
Driving Restrictions: As prior to admission
Other Services: VN
Activity Restrictions/Additional Instructions:
You need CBC and CMP in 1 week, script from PCP
Referrals:
Arturo Boucher MD [Family Provider] - in less than 1 week
Prescriptions:
New
cephalexin 500 mg Capsule
500 mg PO QID Qty: 14 0RF
Continued
brimonidine-timolol [Combigan] 0.2-0.5 % Drops
1 drp BOTH EYES DAILY
Lumigan 0.01 % Drops
1 drp BOTH EYES HS
Rhopressa 0.02 % Drops
1 drp BOTH EYES QPM
Centrum Chewables 8 mg-400 mcg- 10 mcg Tablet,Chewable
1 tab PO DAILY
Discontinued
lovastatin 40 MG tablet
40 mg PO DAILY
hydrochlorothiazide 25 MG tablet
12.5 mg PO DAILY
lisinopril 20 mg Tablet
20 mg PO DAILY
Discharge Orders:
Discharge Patient (As Directed); Ordered 09/02/23
Ordered By: Ludwig Wagner
Discharge Date and Time
Discharge Date/Time: 09/02/23 13:32
Print Language: [id number]
== END 2023-09-02 13:32 | disposition home health service (06) | DRG 690 ==
LOC: 4 EAST ACU 17:22
PROVIDERS: Emergency Medicine; Internal Medicine; ADMITTING PHYSICIAN Hospitalist; ATTENDING PHYSICIAN Internal Medicine; EMERGENCY PHYSICIAN Emergency Medicine; FAMILY PHYSICIAN Family Medicine
DX: N39.0 Urinary tract infection, site not specified (principal); E87.1 Hypo-osmolality and hyponatremia; N17.9 Acute kidney failure, unspecified; M62.82 Rhabdomyolysis; I12.9 Hypertensive chronic kidney disease with stage 1 through stage 4 chronic kidney disease, or unspecified chronic kidney disease; N18.30 Chronic kidney disease, stage 3 unspecified; E78.00 Pure hypercholesterolemia, unspecified; Z85.46 Personal history of malignant neoplasm of prostate; Z90.79 Acquired absence of other genital organ(s); E87.6 Hypokalemia; Z66 Do not resuscitate; Z11.52 Encounter for screening for COVID-19
CPT/HCPCS: 71046; 74176; 76700; 80053; 80143; 81003; 81015; 82248; 82550; 82962; 82977; 83605; 83735; 85025; 85027; 86308; 86706; 86708; 86803; 87040; 87077; 87086; 87502; 87811; 93005; 96365; 96366; 96375; 97116; 97161; 97166; 97530; 99285

== ENCOUNTER → 2024-12-21 13:15 | Outpatient (REF) | payer OTHER, SELFPAY | LOC: RAD 13:15 | PROVIDERS: ATTENDING PHYSICIAN Family Medicine | DX: I12.9 Hypertensive chronic kidney disease with stage 1 through stage 4 chronic kidney disease, or unspecified chronic kidney disease (principal); G89.29 Other chronic pain; M79.604 Pain in right leg; M79.605 Pain in left leg; I73.9 Peripheral vascular disease, unspecified | CPT/HCPCS: 93922; 93925 ==

== ENCOUNTER → 2025-06-07 10:25 | Outpatient (REF) | payer OTHER, SELFPAY | LOC: RAD 10:25 | PROVIDERS: ATTENDING PHYSICIAN Family Medicine | DX: Z91.81 History of falling (principal); R53.82 Chronic fatigue, unspecified | CPT/HCPCS: 71046 ==